=== PATIENT | female | born 1930 | race Caucasian/White ===

== ENCOUNTER 2017-08-13 12:08 | Emergency (ER) | payer MEDICARE ==
[2017-08-13 12:34] VITALS: BP 155/70
--- NOTE | 2017-08-20 10:09 | ER Document Report ---
ED ENT - General Chief Complaint: Ear Pain Stated Complaint: EAR ACHE Time Seen by Provider: 08/13/17 12:48 TRAVEL OUTSIDE OF THE [place] IN LAST 30 DAYS: No - HPI Patient complains to provider of: Ear problem Onset: Other - Pt with c/o R earache for the past few days. Denies fever - Related Data Allergies/Adverse Reactions: No Known Allergies Allergy (Verified 08/13/17 12:53) Past Medical History - General Information source: Patient - Social History Smoking Status: Never Smoker Chew tobacco use (# tins/day): No Frequency of alcohol use: None Drug Abuse: None Family History: None Patient has suicidal ideation: No Patient has homicidal ideation: No - Past Medical History Cardiac Medical History: Reports: Hx Heart Attack, Hx Hypercholesterolemia, Hx Hypertension Renal/ Medical History: Denies: Hx Peritoneal Dialysis Past Surgical History: Reports: Hx Appendectomy, Hx Cardiac Surgery - 1 stent, Hx Cholecystectomy - Immunizations Immunizations up to date: Yes Hx Diphtheria, Pertussis, Tetanus Vaccination: Yes Hx Pneumococcal Vaccination: 10/07/13 Review of Systems - Review of Systems Constitutional: No symptoms reported EENT: See HPI, Ear pain Cardiovascular: No symptoms reported Respiratory: No symptoms reported Gastrointestinal: No symptoms reported Musculoskeletal: No symptoms reported -: Yes All other systems reviewed and negative Physical Exam - Vital signs Vitals: Temp Pulse Resp BP Pulse Ox 97.8 F 89 16 155/70 H 99 08/13/17 12:30 08/13/17 12:30 08/13/17 12:30 08/13/17 12:30 08/13/17 12:30 - General General appearance: Appears well In distress: None - HEENT Eyes: Normal Ears: Other - R TM -- red, dull, with losss of landmarks. L TM is normal Sinus: Normal Mouth/Lips: Normal Mucous membranes: Normal Pharynx: Normal - Respiratory Respiratory status: No respiratory distress Breath sounds: Normal - Cardiovascular Rhythm: Regular Heart sounds: Normal auscultation Course - Vital Signs Vital signs: Temp Pulse Resp BP Pulse Ox 97.8 F 89 16 155/70 H 99 08/13/17 12:30 08/13/17 12:30 08/13/17 12:30 08/13/17 12:30 08/13/17 12:30 Discharge - Discharge Clinical Impression: Otitis media Qualifiers: Otitis media type: unspecified Chronicity: acute Qualified Code(s): H66.90 - Otitis media, unspecified, unspecified ear Condition: Stable Disposition: HOME, SELF-CARE Additional Instructions: rest, take meds as prescribed, return if worse Prescriptions: Amoxicillin Trihydrate [Amoxil 500 mg Capsule] 500 mg PO TID #30 capsule Naproxen [Naprosyn 375 Mg Tablet] 375 mg PO BID #14 tablet Referrals: JENN PEREZ MD [ACTIVE STAFF] - Follow up as needed
== END 2017-08-13 13:00 | disposition home or self-care (01) ==
LOC: ER 12:08
DX: H66.90 Otitis media, unspecified, unspecified ear (principal); H92.01 Otalgia, right ear; I10 Essential (primary) hypertension; I25.2 Old myocardial infarction; Z95.5 Presence of coronary angioplasty implant and graft
CPT/HCPCS: 99282